=== PATIENT | female | born 1975 | race Two or more races ===

== ENCOUNTER 2017-08-26 23:35 | Emergency (ER) | payer OTHER ==
[~2017-08-26] VITALS: Ht 165.1 cm; Wt 57.2 kg
--- NOTE | 2017-08-26 23:45 | NUR ---
PT AMBULATORY TO ER BED 16. BIBFAMILY C/O VB X 1 DAY. PT STATES HER OB TOLF HER SHE WAS LAST WEEK. PT PLACED IN GOWN AND ON [employer]PUT[employer]. VSS/RESP EVEN UNLABORED/NAD NOTED/SKIN WARM AND DRY/DENIES N-V-D/AFEBRILE/AOX4. AWAITING MD GREEN.
--- NOTE | 2017-08-27 00:01 | NUR ---
AT BEDSIDE FOR EVAL.
[2017-08-27 00:46] LABS: BASOPHILS % (AUTO) 0.4 % (0.0-2.0); EOSINOPHILS % (AUTO) 2.4 % (0.0-6.0); HEMATOCRIT 37 % (33-45); HEMOGLOBIN 12.6 g/dL (11.5-14.8); LYMPHOCYTES % (AUTO) 42.5 % (20.0-44.0); MEAN CORPUSCULAR HGB CONC 34 g/dl (31.0-36.0); MEAN CORPUSCULAR VOLUME 91 fL (82-100); MONOCYTES # (AUTO) 0.6 /CMM (0.1-1.30); MONOCYTES % (AUTO) 6.4 % (2.0-12.0); NEUTROPHILS # (AUTO) 4.5 /CMM (1.8-8.9); NEUTROPHILS % (AUTO) 48.3 % (43.0-81.0); PLATELET COUNT (AUTO) 300 /CMM (150-450); WHITE BLOOD COUNT (AUTO) 9.4 K/uL (4.3-11.0)
[2017-08-27 00:57] LABS: POTASSIUM 3.8 mmol/L (3.5-5.1)
[2017-08-27 00:59] LABS: INR 1.01 (0.87-1.13)
[2017-08-27 01:09] LABS: ALBUMIN 3.6 g/dL (3.4-5.0); BILIRUBIN,TOTAL 0.3 mg/dL (0.2-1.0); TOTAL PROTEIN, SERUM 7.3 g/dL (6.4-8.2)
--- NOTE | 2017-08-27 01:15 | NUR ---
PER CLS, NOT A CANIDATE FOR RHOGRAM
--- NOTE | 2017-08-27 01:33 | NUR ---
MD AT BEDSIDE SPEAKING WITH PATIENT.
--- NOTE | 2017-08-27 01:44 | NUR ---
Patient discharged to home in stable condition. Written and verbal after care instructions given. Patient verbalizes understanding of instruction. Patient ambulatory with a steady gait.
[2017-08-27 01:45] VITALS: BP 120/65
== END 2017-08-27 01:46 | disposition home or self-care (01) ==
LOC: ER 23:35
DX: O20.0 Threatened abortion (principal)
CPT/HCPCS: 36415; 80053-TC; 84702-TC; 85025-TC; 85610-TC; A4606; Z7610